=== PATIENT | male | born 1935 | race Caucasian/White ===

== ENCOUNTER 2019-08-23 07:36 | Day surgery (SDC) | payer MEDICARE, BC ==
[2019-08-23] MEDS ORDERED: Lactated Ringers 1,000 ML IV SCH (08:00)
[2019-08-23] MEDS ORDERED: Acetaminophen/HYDROcodone 325-5 MG Tab PO PRN (09:00)
[2019-08-23] MEDS: Clindamycin Phosphate 900 MG/6 ML SDV IV ONE (09:50)
[2019-08-23 11:41] VITALS: BP 138/73; PULSE 79
--- NOTE | 2019-08-24 07:56 | OR ---
DATE OF OPERATION: SURGEON: Riky Montgomery MD PREOPERATIVE DIAGNOSIS: Right carpal tunnel syndrome. POSTOPERATIVE DIAGNOSIS: Right carpal tunnel syndrome. PROCEDURE: Right carpal tunnel release. ANESTHESIA: Local MAC. IN FLIGHT REFUELING OPERATOR: Sylvia Gallagher RN. SPECIMENS: None. DRAINS: None. ESTIMATED BLOOD LOSS: Minimal. COMPLICATIONS: None apparent. DESCRIPTION OF PROCEDURE: After informed consent was obtained, the patient was brought to the operating room, where monitored anesthesia care was provided uneventfully. The right upper extremity was prepped and draped sterilely. A time-out was held, and antibiotics were confirmed. We used local anesthesia to infiltrate the planned surgical location. We then, after satisfactory anesthesia was obtained, proceeded with the procedure. An incision was made in line with the radial border of the ring finger from a line shy of Trejo's cardinal line to the volar wrist crease. We dissected sharply through the skin, subcutaneous tissue, palmar aponeurosis, down onto the transverse carpal ligament. The transverse carpal ligament was released in its entirety. The distal aspect of the volar antebrachial fascia was released with tenotomies and inspected the median nerve and its motor branch, which were intact. Copiously irrigated and closed with 4-0 nylon. Sterile dressings were applied, and the patient was brought to the recovery room in stable condition, having tolerated the procedure well with no apparent complications. AZAR/GEETA /[id number]
== END 2019-08-23 11:10 | disposition home or self-care (01) ==
LOC: LB.SDS 07:36
PROVIDERS: ATTEND Orthopaedic Surgery
DX: G56.01 Carpal tunnel syndrome, right upper limb (principal)
CPT/HCPCS: J2001

== ENCOUNTER 2020-05-15 08:05 | Day surgery (SDC) | payer MEDICARE, BC ==
[~2020-05-15 08:05] MED LIST: Acetaminophen/HYDROcodone 325-5 MG Tab PO PRN; Lactated Ringers 1,000 ML IV SCH; ceFAZolin 1 GM in Sodium Chloride 0.9% 50 ML IV ONE
[2020-05-15] MEDS ORDERED: Clindamycin Phosphate 900 MG in Sodium Chloride 0.9% 100 ML IV SCH (08:15)
[2020-05-15] MEDS ORDERED: Clindamycin Phosphate 900 MG/6 ML SDV IV ONE (08:30)
[2020-05-15] MEDS ORDERED: Ondansetron 4 MG/2 ML SDV ONE (10:00)
[2020-05-15] MEDS ORDERED: Midazolam 1 MG/ML 2 ML SDV ONE (10:00)
[2020-05-15] MEDS ORDERED: Lidocaine 0.5% 50 ML SDV ONE (10:00)
[2020-05-15 12:54] VITALS: BP 116/62; PULSE 70
== END 2020-05-15 11:40 | disposition home or self-care (01) ==
LOC: LB.SDS 08:05
PROVIDERS: ATTEND Orthopaedic Surgery
DX: G56.02 Carpal tunnel syndrome, left upper limb (principal); E78.00 Pure hypercholesterolemia, unspecified; J44.9 Chronic obstructive pulmonary disease, unspecified; G47.33 Obstructive sleep apnea (adult) (pediatric); I48.91 Unspecified atrial fibrillation; I11.0 Hypertensive heart disease with heart failure; I50.9 Heart failure, unspecified; I35.0 Nonrheumatic aortic (valve) stenosis; M10.9 Gout, unspecified; Z99.89 Dependence on other enabling machines and devices; Z88.0 Allergy status to penicillin; Z88.2 Allergy status to sulfonamides; Z79.899 Other long term (current) drug therapy; Z87.891 Personal history of nicotine dependence; Z89.511 Acquired absence of right leg below knee
CPT/HCPCS: 64721; J2001; J2250; J2405; J3490; J7050; J7120

== ENCOUNTER 2021-12-22 04:15 | Observation (INO) | payer MEDICARE, BC ==
[2021-12-22] MEDS ORDERED: Pantoprazole 40 MG Vial IVPUSH ONE (04:45)
[2021-12-22] MEDS ORDERED: Acetaminophen/oxyCODONE 325-5 MG Tab ONE (06:00)
[2021-12-22] MEDS ORDERED: Cephalexin 500 MG Cap ONE (06:00)
[2021-12-22] MEDS ORDERED: Morphine 2 MG/ML SYRINGE IVPUSH ONE (06:18)
[2021-12-22] MEDS ORDERED: Morphine 2 MG/ML SYRINGE ONE (06:20)
[2021-12-22] MEDS ORDERED: Morphine 2 MG/ML SYRINGE IVPUSH PRN (06:25)
[2021-12-22] MEDS ORDERED: Cephalexin 500 MG Cap PO SCH ×2 (06:30→08:00)
[2021-12-22] MEDS ORDERED: Metoprolol Tartrate 25 MG Tab PO SCH (08:15)
[2021-12-22] MEDS: CEPHALEXIN 500 MG PO SCH ×2 (09:09→19:55)
[2021-12-22] MEDS: DILT 120 MG PO SCH (09:09)
[2021-12-22] MEDS: Furosemide 40 MG Tab *PT OWN MED PO SCH (09:10)
[2021-12-22] MEDS: Acetaminophen 325 MG Tab PO PRN ×3 (13:48→22:01)
[2021-12-22] MEDS ORDERED: Furosemide 40 MG Tab *PT OWN MED PO SCH (14:00)
[2021-12-22] MEDS ORDERED: LISINOPRIL 20 MG PO SCH (20:00)
[2021-12-23] MEDS: Acetaminophen 325 MG Tab PO PRN (03:41)
[2021-12-23 07:43] VITALS: BP 134/62; PULSE 78
[2021-12-23] MEDS: CEPHALEXIN 500 MG PO SCH (08:02)
[2021-12-23] MEDS: DILT 120 MG PO SCH (08:03)
[2021-12-23] MEDS: Furosemide 40 MG Tab *PT OWN MED PO SCH (08:03)
== END 2021-12-23 09:19 | disposition home or self-care (01) ==
LOC: LB.ED 04:15 → LB.MS 06:00 → UNDOADMOB 06:00 → LB.MS 06:07
PROVIDERS: ADMIT Physician Assistant; ATTEND Physician Assistant
DX: R04.0 Epistaxis (principal); J44.9 Chronic obstructive pulmonary disease, unspecified; I11.0 Hypertensive heart disease with heart failure; I50.9 Heart failure, unspecified; E66.9 Obesity, unspecified; Z88.0 Allergy status to penicillin; Z98.890 Other specified postprocedural states; I48.91 Unspecified atrial fibrillation; Z79.01 Long term (current) use of anticoagulants; Z79.899 Other long term (current) drug therapy; Z68.39 Body mass index [BMI] 39.0-39.9, adult; Z87.891 Personal history of nicotine dependence
CPT/HCPCS: 30903; 36415; 80048; 85025; 85610; 96374; 96375; 96376; 99284-25; A9270-GY; C9113; G0378; J2270

== ENCOUNTER 2022-03-04 12:01 | Emergency (ER) | payer MEDICARE, BC ==
[2022-03-04 12:23] VITALS: BP 139/62; PULSE 87
== END 2022-03-04 14:00 | disposition home or self-care (01) ==
LOC: LB.ED 12:01
DX: R04.0 Epistaxis (principal); I48.91 Unspecified atrial fibrillation; J44.9 Chronic obstructive pulmonary disease, unspecified; I10 Essential (primary) hypertension; E66.9 Obesity, unspecified; Z68.30 Body mass index [BMI] 30.0-30.9, adult; Z88.0 Allergy status to penicillin; Z79.899 Other long term (current) drug therapy; Z79.01 Long term (current) use of anticoagulants
CPT/HCPCS: 36415; 85025; 85610; 99283

== ENCOUNTER 2023-01-20 17:41 | Emergency (ER) | payer MEDICARE, BC ==
[2023-01-20 18:40] VITALS: PULSE 85
[2023-01-20] MEDS ORDERED: Ciprofloxacin 500 MG Tab ONE (19:00)
[2023-01-20 19:09] VITALS: BP 136/67
== END 2023-01-20 19:25 | disposition home or self-care (01) ==
LOC: LB.ED 17:41
DX: R33.9 Retention of urine, unspecified (principal); J44.9 Chronic obstructive pulmonary disease, unspecified; I48.91 Unspecified atrial fibrillation; I11.0 Hypertensive heart disease with heart failure; I50.9 Heart failure, unspecified; E66.9 Obesity, unspecified; Z68.30 Body mass index [BMI] 30.0-30.9, adult; Z88.0 Allergy status to penicillin; Z79.899 Other long term (current) drug therapy; Z79.01 Long term (current) use of anticoagulants
CPT/HCPCS: 51702; 81001; 99283; A9270-GY

== ENCOUNTER 2024-03-29 14:54 | Emergency (ER) | payer MEDICARE, BC ==
[2024-03-29 16:32] LABS: BASOPHILS ABSOLUTE AUTO 0.03 K/uL (0.02-0.10); BASOPHILS PERCENT AUTO 0.9 % (0.0-0.5); EOSINOPHILS ABSOLUTE AUTO 0.11 K/uL (0.04-0.40); EOSINOPHILS PERCENT AUTO 3.3 % (1.0-5.0); HEMATOCRIT 39.2 % (40.0-54.0); HEMOGLOBIN 11.9 g/dL (13.0-18.0); LYMPHOCYTES ABSOLUTE AUTO 0.42 K/uL (1.50-4.00); LYMPHOCYTES PERCENT AUTO 12.5 % (20.0-40.0); MEAN CORPUSCULAR HEMOGLOBIN 27.4 pg (27.0-32.0); MEAN CORPUSCULAR HGB CONC 30.4 g/dL (31.0-35.0); MEAN CORPUSCULAR VOLUME 90 fL (76-96); MEAN PLATELET VOLUME 9.9 fL (6.0-10.0); MONOCYTES ABSOLUTE AUTO 0.61 K/uL (0.20-0.80); MONOCYTES PERCENT AUTO 18.1 % (3.0-10.0); NEUTROPHILS PERCENT AUTO 65.2 % (45.0-70.0); PLATELET COUNT,PLT 123 K/uL (150-400); RED BLOOD CELL COUNT 4.34 M/uL (4.50-6.50); RED CELL DISTRIBUTION WIDTH 16.2 % (11.0-16.0); WHITE BLOOD CELL COUNT,WBC 3.4 K/uL (4.0-11.0)
[2024-03-29 16:33] LABS: ANION GAP 8.7 mmol/L (5.0-15.0); BUN/CREATININE RATIO 9.8 (6-25); CALCIUM 8.3 mg/dL (8.5-10.1); CARBON DIOXIDE,CO2 35.6 mmol/L (21.0-32.0); CREATININE 0.82 mg/dL (0.70-1.30); EST CRCL DRUG DOSING (CG) 65.53 mL/min; POTASSIUM,K 4.3 mmol/L (3.5-5.1)
[2024-03-29 16:58] LABS: INFLUENZA A NAA NEGATIVE (NEGATIVE); INFLUENZA B NAA NEGATIVE (NEGATIVE); RESPIRATORY SYNCYTIAL VIR NAA NEGATIVE (NEGATIVE)
[2024-03-29 17:07] LABS: CORONAVIRUS COVID-19 NAA POSITIVE (NEGATIVE)
[2024-03-29 17:46] VITALS: BP 162/88; PULSE 83
== END 2024-03-29 17:27 | disposition home or self-care (01) ==
LOC: LB.ED 14:54
DX: U07.1 COVID-19 (principal); I11.0 Hypertensive heart disease with heart failure; I50.9 Heart failure, unspecified; I48.91 Unspecified atrial fibrillation; J44.9 Chronic obstructive pulmonary disease, unspecified; Z88.0 Allergy status to penicillin; Z79.01 Long term (current) use of anticoagulants; Z79.899 Other long term (current) drug therapy
CPT/HCPCS: 0241U; 36415; 80048; 85025; 99284